=== PATIENT | female | born 1950 | race Caucasian/White ===

== ENCOUNTER 2018-06-10 09:38 | Inpatient (IN) ==
--- NOTE | 2018-06-10 09:48 | History & Physical Report ---
Date of Encounter: 06/10/18 Time of Encounter: 09:47 24 Hour HP Update - Instructions Instructions: If the History and Physical is less than 30 days old and was completed prior to A.M. admission and or procedure and has NOT been updated on calendar day of procedure please complete this update prior to performing procedure. - Update Patient reports changes in Medical Condition: No Changes in examination, assessment, or condition: No Preop tests/diagnostics Reviewed: Yes Pre-Op MRSA Screen: Negative Surgery Remains Indicated: Yes Consent for Planned Operative Procedure(s) Verified: Yes - Pre-Operative Checklist Preoperative Checklist Indicated: No Prophylactic Antibiotic Ordered: Yes Home Medications Include Beta Naina: No Beta Naina Taken Today (Day of Surgery): No Beta Naina Taken Yesterday (Day Prior to Surgery): No Is VTE Prophylaxis Indicated?: Yes
[2018-06-10] MEDS ORDERED: Acetaminophen IV 1,000 MG/100 ML INFUS..BTL IVPB ONE (10:01)
[2018-06-10] MEDS ORDERED: Pregabalin 75 MG CAPSULE PO ONE (10:01)
[2018-06-10] MEDS ORDERED: Famotidine 20 MG/2 ML VIAL IVP ONE (10:01)
[2018-06-10] MEDS ORDERED: *HR* Methadone 10 MG TABLET PO ONE (10:02)
[2018-06-10] MEDS ORDERED: CeFAZolin Syr 2,000MG/20 ML 2,000 MG/20 ML SYRINGE IVPB ONE (10:10)
[2018-06-10] MEDS ORDERED: Ringers Solution, Lactated 1,000 ML IVC SCH ×2 (10:15→12:45)
--- NOTE | 2018-06-10 10:17 | Anesthesia Evaluation PreOp ---
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 History: TIA Other Medical History: Diabetes Type II, Other ([place]) Anesthesia History: No Prior Anesthetic Complications, Past Anesthesia (Gastric Bypass) : No Alcohol Use: none Drug use: none Medications and Allergies Aspirin Enteric Coated [Aspirin EC] 325 mg PO DAILY #42 tablet.dr 05/06/16 [Rx] OxyCODONE Immed Rel [Roxicodone 5 MG] 5 - 10 mg PO Q6HR PRN #40 tablet 05/06/16 [Rx] Acetaminophen w/Cod 300-30 mg [Tylenol w/Codeine #3] 1 each PO Q6HR 05/07/16 [ History] Alendronate Sodium [Fosamax] 70 mg PO QWEEK 05/07/16 [History] Aspirin [Lo-Dose Aspirin EC] 81 mg PO 05/07/16 [History] Calcium Carbonate [Calcium] 500 mg PO 05/07/16 [History] Gabapentin [Neurontin] 400 mg PO TID 05/07/16 [History] Lisinopril/Hydrochlorothiazide [Zestoretic 10-12.5 mg Tablet] 1 each PO DAILY [History] Metformin HCl [Metformin HCl ER] 1,500 mg PO DAILY 05/07/16 [History] Verapamil HCl [Verapamil ER] 240 mg PO DAILY 05/07/16 [History] 3 Allergy/AdvReac Type Severity Reaction Status Date / Time nifedipine [From Procardia] Allergy Intermediate Anxiety Verified 05/12/18 11:58 - Meds/Allergy Pre-op Review Medications Reviewed: Yes Allergies Reviewed: Yes Beta Blockers on Current Med List: No Anesthesia Results - Labs Laboratory Tests 05/12/18 05/12/18 05/12/18 12:13 12:13 12:13 Hgb 14.8 Hct 43.8 Plt Count 216 PT 10.4 INR 0.9 APTT 31.0 Sodium 135 L Potassium 3.8 BUN 21 Creatinine 0.93 - Imaging EKG: report reviewed (SR) Additional studies: ECHO 2016 EF 60%, no pulm htn Anesthesia Exam O2 Sat Height 1.52 m Weight 102.965 kg Height: 5'0 Weight: 227 lbs NPO (# of Hours): MN Pain Scale: 0 - HEENT Pupil (Motor): Pupils equal, EOMI Mallampati: III Teeth: Normal Oral Opening: Less than or equal to 3 - BUFF WHEEL FABRICATOR LOC: Oriented BUFF WHEEL FABRICATOR Motor: Normal RUE, Normal LUE, Normal RLE, Normal LLE, Normal Face BUFF WHEEL FABRICATOR Sensory: Normal: RUE, LUE, LLE, Face, Deficit: RLE (Sciatica) - Cardiac Rhythm: Regular Murmur: None JVD: No Carotid Bruit: No - Pulmonary Breath Sounds: bilateral Clear Respiratory Effort: Symmetrical Anesthesia Assess/Plan ASA Score: 3 (HTN MANDY MO DM) Modified Yareli Scale for Level of Consciousness: Cooperative, oriented, and tranquil Anesthetic Plan: General Monitoring Plan: Standard Monitors Recovery Plan: PACU (Discussed GA, agrees to proceed)
[2018-06-10] MEDS ORDERED: Bacitracin 50,000 UNIT, Polymyxin B Sulfate 500,000 UNIT, Sodium Chloride IRRigation 1,... IR ONE (11:25)
[2018-06-10] MEDS ORDERED: *HR* Promethazine 25 MG/ML VIAL IVP PRN (12:45)
[2018-06-10] MEDS ORDERED: *HR* OxyCODONE Immed Rel 5 MG TABLET PO PRN (12:45)
[2018-06-10] MEDS ORDERED: Ondansetron 4 MG/2 ML VIAL IVP ONE (12:45)
[2018-06-10] MEDS ORDERED: *HR* Labetalol 20 MG/4 ML SYRINGE IVP PRN (12:45)
--- NOTE | 2018-06-10 14:27 | Orthopedic Operative Note ---
Date of procedure: 06/10/18 Pre-op diagnosis: Spondylolisthesis, lumbar stenosis Post-op diagnosis: same Operation/Findings: Posterior lumbar interbody fusion L3-4: The patient successfully underwent general endotracheal anesthesia. The patient was given antibiotics prior to the start of the procedure. Compression boots and stockings were used for deep vein thrombosis prophylaxis. A Heath catheter was placed. Leads for neuro monitoring were placed on the upper and lower extremities. This included the cranium. The neuro monitoring personnel confirmed there were satisfactory readings prior to the start of the procedure. The patient was turned prone on the Julio César table. The back was prepped and draped in the usual sterile fashion. An incision was was marked and centered over the involved L3-L4 levels in the mid line. The incision was deepened through the lumbar fascia. Bovie cautery and Garcia elevators were used to reflect the paraspinal musculature at the lateral extent of the transverse processes of the involved L3 and L4 levels. Diana clamps were placed over the L3 and L4 spinous processes. An intraoperative lateral fluorograph was obtained. A conversation was held between the surgeon and radiologist and both confirmed we had the correct operative levels. We then placed pedicle screws in standard fashion with the aid of fluoroscopy and anatomic landmarks. Briefly a starter awl was used. A gearshift was subsequently used to enter the photogrammetry airplane pilot hole via a transpedicular route into the vertebral body. The photogrammetry airplane pilot hole was tapped with an undersized instrument, and subsequently four 6.5 x 40 mm pedicle screws were placed bilaterally at the indicated L3 and L4 levels. The screws were tested with the aid of the neurologic monitoring staff via pedicle screw stimulation. All reading suggested there was no significant cortical wall breech. The screws were also evaluated fluoro- graphically and appeared to be in satisfactory position. We then turned our attention to the decompression portion of the procedure. We removed the supraspinous and interspinous ligaments and subsequently the insertion of the ligamentum flavum on the undersurface of the proximal L3 lamina was dislodged with a curette. We then removed the ligamentum flavum as well as undercut the L3-L4 facets at this level to decompress the lateral recesses. We also performed a L3 laminectomy. After the decompression, which was over and above that which was required to place the interbody graft, the foramen and traversing roots at this L3-L4 level were found to be free and patent. We also took part of the medial facets at L3- 4 in order to aid in the decompression. We then protected the neural elements including the thecal sac and traversing nerve root on the right with a dural retractor. We made an annulotomy into the L3-L4 disc space and then removed entire disc material using Pituitary instruments. We trialed various size grafts after the endplates were prepared for graft insertion. A 10 x 26 enter body graft fit well within the disc space. We obtained some bone from the right posterior superior iliac spine through us a separate incision and combined with this with the bone which we had saved from the laminectomy portion of the procedure. This autograft bone was first placed in the anterior portion of the L3-L4 disc space and additional bone was placed within the interbody graft spacer. We then placed the interbody graft spacer obliquely across the disc space towards the midline while protecting the neural elements with a root retractor. When the graft was found to be in satisfactory position the ceramic research engineer was removed. We then copiously irrigated the wound. We then decorticated the L3 and L4 transverse processes as well as L3-4 the facet joints of the involved L3 and L4 levels to aid in the posterolateral fusion. We placed autograft bone in the lateral gutters over these regions. We then placed rods within the screw heads of the involved L3 and L4 levels and first locked the distal screws and then subsequently locked the proximal screws so as to improve and reduce the spondylolisthesis previously seen. We then closed the wound in layers with 1 Vicryl for the fascia, 2-0 Vicryl. Subcutaneous tissue, and Dermabond was used for skin closure. Sterile dressings were placed over the wound. The patient was turned supine on a hospital bed and extubated. All sponge instruments and needle counts were correct at the end of the procedure. The patient tolerated the procedure well without complications. Anesthesia: GETA Surgeon: Nitin Buenrostro Jr Was there an esol teacher assistant present: No Estimated blood loss (cc): 100 Specimen: None Condition: stable Disposition: PACU
[2018-06-10] MEDS ORDERED: *HR* Remifentanil 1 MG VIAL IVP ONE (14:32)
[2018-06-10] MEDS ORDERED: *HR* Midazolam HCl 2 MG/2 ML VIAL ONE (14:32)
[2018-06-10] MEDS ORDERED: Dexamethasone 4 MG/ML VIAL ONE ×2 (14:32)
[2018-06-10] MEDS ORDERED: Lidocaine -MPF 2% 2 ML VIAL ONE (14:32)
[2018-06-10] MEDS ORDERED: Ondansetron 4 MG/2 ML VIAL ONE (14:32)
[2018-06-10] MEDS ORDERED: *HR* FentaNYL (PF) 100 MCG/2 ML VIAL ONE (14:32)
[2018-06-10] MEDS ORDERED: *HR* Succinylcholine 200 MG/10 ML VIAL IVP ONE (14:32)
[2018-06-10] MEDS ORDERED: *HR* Propofol 200 MG/20 ML VIAL IVP ONE (14:32)
[2018-06-10] MEDS: *HR* HYDROmorphone (PF) 1 MG/ML SYRINGE IVP PRN ×4 (14:34→14:46)
--- NOTE | 2018-06-10 15:13 | Anesthesia Evaluation Post Op ---
Date of Encounter: 06/10/18 Time of Encounter: 15:00 - Vital Signs Vital Signs: Vital Signs/O2 Sat/Glucose, Most Current Temp Pulse Resp BP Pulse Ox 06/10/18 15:04 98.6 F 98 16 134/71 97 06/10/18 14:54 98.6 F 87 16 138/72 97 06/10/18 14:44 97.5 F L 101 16 152/86 97 06/10/18 14:34 97.5 F L 113 16 158/106 97 - Lungs Lungs: Clear Ascult./Percussion - Airway Airway: Non-obstructed - Cardiovascular Regular Rate - Mental Status Mental Status: Alert & Oriented, Answers Appropriately - Pain Pain Scale: 1 - Nausea Vomiting Nausea Vomiting: Not Present - Hydration Hydration: Ice chips, Heath catheter - Discharge PostOp Status: Transfer Patient to floor
[2018-06-10] MEDS ORDERED: Acetaminophen 325 MG TABLET PO PRN (15:14)
[2018-06-10] MEDS ORDERED: Naloxone 0.4 MG/ML INJ IVP PRN (15:14)
[2018-06-10] MEDS ORDERED: Ondansetron 4 MG/2 ML VIAL IVP PRN (15:14)
[2018-06-10] MEDS: *HR* OxyCODONE Immed Rel 5 MG TABLET PO PRN ×2 (15:43→19:58)
[2018-06-10] MEDS: *HR* Metformin 500 MG TABLET PO SCH (16:21)
[2018-06-10] MEDS: Ringers Solution, Lactated 1,000 ML IVC SCH (16:22)
[2018-06-10] MEDS: *HR* HYDROcodone/Acet 5/325 mg TABLET PO PRN (18:09)
[2018-06-11] MEDS: *HR* OxyCODONE Immed Rel 5 MG TABLET PO PRN ×5 (01:13→20:22)
[2018-06-11] MEDS: Ringers Solution, Lactated 1,000 ML IVC SCH (01:16)
[2018-06-11 02:20] LABS: Basophils % 0.2 %; Eosinophils % 0.1 %; Hematocrit 31.9 % (35.3-44.9); Hemoglobin 10.7 g/dL (11.5-15.4); Immature Granulocytes % 0.7 % (0-4); Lymphocytes # 1.2 K/mcL (0.6-4.6); Lymphocytes % 11.3 %; Mean Corpuscular HGB Conc 33.5 g/dL (31.6-35.5); Mean Corpuscular Volume 92.5 fL (83.0-100.0); Mean Platelet Volume 11.3 fL (9.4-12.4); Monocytes # 0.5 K/mcL (0.0-1.3); Monocytes % 5.2 %; Neutrophils # 8.6 K/mcL (1.6-8.9); Platelet Count 151 K/mcL (140-400); Red Blood Count 3.45 M/mcL (3.82-4.97); Red Cell Distribution Width 12.4 % (11.5-14.5); Segmented Neutrophils % 82.5 %
[2018-06-11 02:40] LABS: BUN/Creatinine Ratio 19 (6-26); Blood Urea Nitrogen 17 mg/dL (8-23); Calcium 8.3 mg/dL (8.6-10.3); Carbon Dioxide 23 mEq/L (23-29); Chloride 103 mEq/L (98-107); Glucose 149 mg/dL (70-105); Osmolality,Calculated 290 (280-300); Potassium 4.6 mEq/L (3.5-5.1); Sodium 138 mEq/L (136-145); eGFR For Non-African Americans > 60 (> 60)
[2018-06-11] MEDS: Verapamil ER (24 HR) 240 MG TABLET.ER PO SCH (07:28)
[2018-06-11] MEDS: *HR* Metformin 500 MG TABLET PO SCH ×2 (07:28→17:27)
[2018-06-11] MEDS: Multivit/Ca/Min/Fe/FA 1 TAB TABLET PO SCH (07:28)
[2018-06-11] MEDS: hydroCHLOROthiazide 25 MG TABLET PO SCH (07:28)
--- NOTE | 2018-06-11 07:30 | Spine Progress Note ---
Date of Encounter: 06/11/18 Time of Encounter: 07:15 - Assessment and Plan (1) Status post lumbar spinal fusion Current Visit: Yes Status: Acute POD#1: Patient has been afebrile overnight. Blood pressure is normotensive. Good O2 saturation. Pain is well-controlled. Neurologic examination was grossly normal. - Continue pain control. - Continue Colace. - Continue Zofran as needed. - Continue neuro checks. (2) Anemia Current Visit: Yes Status: Acute Minimal blood loss from surgery. Hemoglobin level at 10.7. Baseline from 13-14. Blood pressure is stable. - Continue to monitor. Qualifiers: Anemia type: unspecified type Qualified Code(s): D64.9 - Anemia, unspecified (3) DMII (diabetes mellitus, type 2) Current Visit: No Status: Chronic Glucose level at 149. 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 - Continue hydrochlorothiazide. - Continue verapamil. Qualifiers: Hypertension type: essential hypertension Qualified Code(s): I10 - Essential (primary) hypertension (5) DVT prophylaxis Current Visit: Yes Status: Acute Continue EPCDs. Subjective Principal diagnosis: Spondylesthesis, lumbar stenosis Interval history: Patient says that she is doing well. Denies any fever or chills. Denies any chest pain or shortness of breath. Missed to some numbness and tingling in her right foot however she states that this is her baseline and has had it for many years. Denies any bowel movement or flatness as of yet. Denies any abdominal pain. Denies any nausea or vomiting. She says her pain is a 5-6 out of 10 when she does not move and an 8 out of 10 when she does move. Objective Vital signs: Vital Signs Temp Pulse Resp BP Pulse Ox 06/11/18 07:03 98.0 F 75 16 117/63 96 06/11/18 04:08 98.1 F 68 16 125/77 95 06/10/18 23:04 98.0 F 85 16 128/74 94 06/10/18 18:37 97.8 F 83 16 133/82 96 06/10/18 18:07 97.6 F 90 16 113/63 95 06/10/18 17:15 97.8 F 92 15 146/86 93 06/10/18 16:15 97.6 F 75 16 124/79 92 06/10/18 15:50 97.6 F 76 16 165/98 94 06/10/18 15:16 97.6 F 87 12 152/84 94 06/10/18 15:04 98.6 F 98 16 134/71 97 06/10/18 14:54 98.6 F 87 16 138/72 97 06/10/18 14:44 97.5 F L 101 16 152/86 97 06/10/18 14:34 97.5 F L 113 16 158/106 97 06/10/18 10:29 97.8 F 68 18 175/77 96 Intake and Output 06/10/18 06/10/18 06/11/18 15:59 23:59 07:59 Intake Total 220 / 220 1350 / 1350 Output Total 100 / 100 1150 / 1150 Balance -100 / -100 220 / 220 200 / 200 Intake: IV Fluids 100 / 100 1100 / 1100 Lactated Ringers 1,000 ML @ 100 1000 / 1000 mls/hr IVC .Q10H JOHN Rx#: [id number] Ancef 2,000 MG In 0.9 % Sodium 100 / 100 100 / 100 Chloride 100 ML @ 200 mls/hr IVPB Q8H JOHN Rx#:[id number] Oral 120 / 120 250 / 250 Output: Estimated Blood Loss 100 / 100 Catheter 1150 / 1150 Other: Weight 102.965 kg 102.9 kg Blood Glucose* 128 218 Patient Weight 06/11/18 23:59 Weight 102.9 kg VITAL SIGNS: Reviewed. See [facility] GENERAL: In no acute distress. Able to follow commands. HEENT: [Normocephalic, PER, EOMi, oropharynx pink/moist, no JVD noted.] CV: b/l rad pulses 2+, RRR, no murmurs or gallops, no JVD RESPIRATORY: CTAB without wheezes, rales, or rhonchi ABD: soft, non-tender, no rebound/guarding/rigidity, no peritoneal signs INCISION: Wound bandage with minor dried blood. Incision itself clean, dry, intact without purulence/bleeding/edema/rubor/calor. EXTREMITY: grossly normal motor function, no pedal edema, peripheral pulses 2+ b /l MSK: 5 out of 5 strength in upper and lower extremities. NEUROLOGIC EXAM: AOx3, obeys commands, no speech deficits. Cranial nerves II through XII intact. Minor diminished sensation in right foot. Patient able to move all toes in both feet. PSYCHIATRIC: normal mood and affect SKIN: no gross lesions, rashes, or skin changes - Labs CBC & BMP: 06/11/18 01:55 06/11/18 01:55 Labs: Abnormal lab results RBC 3.45 M/mcL (3.82-4.97) L 06/11/18 01:55 Hgb 10.7 g/dL (11.5-15.4) L 06/11/18 01:55 Hct 31.9 % (35.3-44.9) L 06/11/18 01:55 Glucose 149 mg/dL (70-105) H 06/11/18 01:55 POC Glucose 218 mg/dL (70-99) H 06/10/18 16:21 Calcium 8.3 mg/dL (8.6-10.3) L 06/11/18 01:55 Consult Discharge Plan - Plan Referrals: Nitin Buenrostro Jr, MD [Primary Care Provider] -
[2018-06-11] MEDS: Aspirin Enteric Coated 81 MG Tablet PO SCH (07:31)
[2018-06-11] MEDS: *HR* HYDROcodone/Acet 5/325 mg TABLET PO PRN (09:41)
[2018-06-11] MEDS ORDERED: (Alendronate Sodium [Fosamax] 70 MG) PO SCH (14:30)
[2018-06-11] MEDS: Nystatin POWDER 30 GM BOTTLE TP SCH (22:47)
[2018-06-12] MEDS: *HR* OxyCODONE Immed Rel 5 MG TABLET PO PRN ×5 (02:11→22:17)
[2018-06-12] MEDS: *HR* Metformin 500 MG TABLET PO SCH ×2 (08:45→17:10)
[2018-06-12] MEDS: Verapamil ER (24 HR) 240 MG TABLET.ER PO SCH (08:45)
[2018-06-12] MEDS: hydroCHLOROthiazide 25 MG TABLET PO SCH (08:46)
[2018-06-12] MEDS: Aspirin Enteric Coated 81 MG Tablet PO SCH (08:46)
[2018-06-12] MEDS: Multivit/Ca/Min/Fe/FA 1 TAB TABLET PO SCH (08:46)
[2018-06-12] MEDS: Nystatin POWDER 30 GM BOTTLE TP SCH ×2 (08:47→19:42)
[2018-06-12] MEDS: *HR* HYDROcodone/Acet 5/325 mg TABLET PO PRN (23:22)
[2018-06-13] MEDS: *HR* OxyCODONE Immed Rel 5 MG TABLET PO PRN ×3 (04:58→14:08)
[2018-06-13] MEDS: Aspirin Enteric Coated 81 MG Tablet PO SCH (09:39)
[2018-06-13] MEDS: Multivit/Ca/Min/Fe/FA 1 TAB TABLET PO SCH (09:39)
[2018-06-13] MEDS: Verapamil ER (24 HR) 240 MG TABLET.ER PO SCH (09:39)
[2018-06-13] MEDS: *HR* Metformin 500 MG TABLET PO SCH (09:40)
[2018-06-13] MEDS: hydroCHLOROthiazide 25 MG TABLET PO SCH (09:40)
[2018-06-13] MEDS: Nystatin POWDER 30 GM BOTTLE TP SCH (12:42)
[2018-06-13] MEDS: *HR* HYDROcodone/Acet 5/325 mg TABLET PO PRN (12:42)
--- NOTE | 2018-06-13 13:35 | Spine Progress Note ---
Date of Encounter: 06/12/18 Time of Encounter: 14:05 Subjective Principal diagnosis: Spondylesthesis, lumbar stenosis Interval history: The patient is without complaints except for some leg pain aggravated from therapy. Afebrile vital signs are stable. Incision is clean dry and intact. Neurovascularly intact with regard to bilateral lower extremities. Fires all upper and lower extremity motor groups. . Assessment :stable. Plan mobilize , continue analgesics, discharge planning. Objective Vital signs: Vital Signs Temp Pulse Resp BP Pulse Ox 06/13/18 09:51 98.5 F 76 16 146/74 95 06/13/18 09:36 82 139/62 06/13/18 06:35 98.8 F 68 15 123/67 95 06/13/18 03:45 98.5 F 71 17 119/69 93 06/12/18 23:55 98.5 F 86 17 135/61 96 06/12/18 20:25 98.7 F 84 17 142/74 97 Intake and Output 06/12/18 06/13/18 06/13/18 23:59 07:59 15:59 Other: # Voids 1 Weight 103.4 kg Blood Glucose* 190 Patient Weight 06/13/18 23:59 Weight 103.4 kg - Labs CBC & BMP: 06/11/18 01:55 06/11/18 01:55 Labs: Abnormal lab results RBC 3.45 M/mcL (3.82-4.97) L 06/11/18 01:55 Hgb 10.7 g/dL (11.5-15.4) L 06/11/18 01:55 Hct 31.9 % (35.3-44.9) L 06/11/18 01:55 Glucose 149 mg/dL (70-105) H 06/11/18 01:55 POC Glucose 218 mg/dL (70-99) H 06/10/18 16:21 Calcium 8.3 mg/dL (8.6-10.3) L 06/11/18 01:55 Consult Discharge Plan - Plan Additional Instructions: Discharge Instructions: Lumbar Please call [facility] ([phone]), your Primary Care Physician, or report to the ER if you have any of the following symptoms: Fever greater that 101.5, increased pain/redness/drainage/odor for your incision site or any other concerning symptoms. ACTIVITY * May Shower * No Tub Baths * No lifting greater than 10 pounds * No Smoking * No Swimming * No off Ground Activities (Running, Climbing, Ladders, Horseback Riding) * No Driving * Wear Back Brace when up walking if lumbar fusion done * Incentive Spirometer 10 times an hour MEDICATIONS: Upon discharge resume your home medications. Take all the medications as prescribed. Take a stool softener if taking narcotic pain medications. Stool softeners are only effective if you drink enough fluids. Drink 6-8 glass of water or fluids a day, unless this is not allowed for another health problem. Despite using stool softeners, if you haven't had a bowel movement in 3 days, please switch to a gentle laxative. Gentle laxatives are sold over the counter. You should have a bowel movement within 24 hours, if not call the office. You will be discharged from the hospital with a prescription for pain medication. You are encouraged to decrease the use of narcotic pain medication as tolerated. Should you require a refill, please call the office. It is best to call 48-72 hours in advance of needing a prescription refill so you don't run out of medication. WOUND CARE: Remove Dressing Tomorrow. Leave incision open to air. Pat dry when you get out of the shower. FOLLOW-UP: Please follow up with your surgeon in the orthopedic clinic in 2 weeks from the day of surgery. References: [employer] ([email or web address]) Referrals: Misty Neff, MARIA EUGENIA [Physician Hand Funnel Coater] - 06/24/18 11:00 am
--- NOTE | 2018-06-13 13:39 | Discharge Summary ---
- NOTES TO OUTPATIENT PROVIDER Notes to Outpatient Provider: Follow-up in spine Center in 2 weeks Orders not resulted at time of discharge: Pending orders 06/10/18 11:45 XR fluoroscopy <1 hr [XR] Routine Date of Encounter: 06/13/18 Time of Encounter: 13:36 - Discharge Diagnosis (1) Spondylolisthesis Priority: Primary Status: Chronic Qualifiers: Spinal region: lumbar Qualified Code(s): M43.16 - Spondylolisthesis, lumbar region (2) Lumbar stenosis Priority: Secondary Status: Chronic Qualifiers: Neurogenic claudication status: without neurogenic claudication Qualified Code(s): M48.061 - Spinal stenosis, lumbar region without neurogenic claudication - Hospital Course Hospital course: Ms. Duncan is a 68 year old female The patient had an uneventful postoperative course. Progressed from intravenous analgesic needs to oral analgesic needs only. Remained neurovascularly intact and mobilized satisfactorily. All intraoperative and/or postoperative radiographic studies were satisfactory. Patient is discharged with plan for rehabilitation and follow-up in 2 weeks post discharge on analgesic medication and patient's home medications. - Time Spent with Patient Total time spent providing and/or coordinating discharge services: - Discharge Medications Prescriptions: OxyCODONE Immed Rel [Roxicodone 5 MG] 5 mg PO Q4HR PRN 7 Days #30 tablet PRN Reason: Severe Pain Home Medications: Alendronate Sodium [Fosamax] 70 mg PO WE 05/07/16 [History] Gabapentin [Neurontin] 800 mg PO BID 05/07/16 [History] Verapamil HCl [Verapamil ER] 240 mg PO DAILY 05/07/16 [History] Aspirin [[place] Aspirin EC] 81 mg PO DAILY 06/10/18 [History] Metformin HCl [Fortamet] 1,000 mg PO BID 06/10/18 [History] Multivitamin [Multivitamins] 1 each PO DAILY 06/10/18 [History] hydroCHLOROthiazide [Hydrochlorothiazide] 25 mg PO DAILY 06/10/18 [History] OxyCODONE Immed Rel [Roxicodone 5 MG] 5 mg PO Q4HR PRN 7 Days #30 tablet [Rx] Allergies/Adverse Reactions: 3 Allergy/AdvReac Type Severity Reaction Status Date / Time nifedipine [From Procardia] Allergy Intermediate Anxiety Verified 06/10/18 10:45 ibuprofen AdvReac see comment Verified 06/10/18 10:45 Date of admission: 06/10/18 15:10 Primary care physician: Nitin Buenrostro Jr MD Consults: 06/10/18 15:14 Consult to Occupational Therapy [CONS] Routine Comment: Evaluate, develop and implement POC Reason for Consult: Postoperative rehabilitation Does patient have active BEDREST order?: No Is patient medically & hemodynamically stable?: Yes Patient assessed for mobility or mobilized this visit?: No Consult to Physical Therapy [CONS] Routine Comment: Evaluate, develop and implement POC Reason for Consult: Postoperative rehabilitation Does patient have active BEDREST order?: No Is patient medically & hemodynamically stable?: Yes Patient assessed for mobility or mobilized this visit?: No Consult to Spine Navigator [CONS] [CONS] Routine - Impressions ITS Impressions Lumbar Spine X-Ray 06/10/18 11:45 IMPRESSION: 1. Intraoperative lateral radiograph demonstrating an anterior and posterior L3-L4 fusion without complication. D/ / 06/10/2018 14:43:42 [facility] Interpreting Provider: Yovanny Hernandez MD Lumbar Spine X-Ray 06/13/18 08:28 IMPRESSION: Unchanged spinal fusion hardware without evidence of complication. D/ / Janes Yadav MD / Janes Yadav MD Interpreting Provider: Janes Yadav MD - Patient Status Disposition: Transfer SNF Condition: Good Functional capacity at discharge: uses cane/walker Overall status at discharge: patient is progressing back to baseline - Discharge Instructions Follow Up With: Misty Neff, PAC [Physician Gum Rolling Machine Operator] - 06/24/18 11:00 am Additional Instructions: Discharge Instructions: Lumbar Please call [facility] ([phone]), your Primary Care Physician, or report to the ER if you have any of the following symptoms: Fever greater that 101.5, increased pain/redness/drainage/odor for your incision site or any other concerning symptoms. ACTIVITY * May Shower * No Tub Baths * No lifting greater than 10 pounds * No Smoking * No Swimming * No off Ground Activities (Running, Climbing, Ladders, Horseback Riding) * No Driving * Wear Back Brace when up walking if lumbar fusion done * Incentive Spirometer 10 times an hour MEDICATIONS: Upon discharge resume your home medications. Take all the medications as prescribed. Take a stool softener if taking narcotic pain medications. Stool softeners are only effective if you drink enough fluids. Drink 6-8 glass of water or fluids a day, unless this is not allowed for another health problem. Despite using stool softeners, if you haven't had a bowel movement in 3 days, please switch to a gentle laxative. Gentle laxatives are sold over the counter. You should have a bowel movement within 24 hours, if not call the office. You will be discharged from the hospital with a prescription for pain medication. You are encouraged to decrease the use of narcotic pain medication as tolerated. Should you require a refill, please call the office. It is best to call 48-72 hours in advance of needing a prescription refill so you don't run out of medication. WOUND CARE: Remove Dressing Tomorrow. Leave incision open to air. Pat dry when you get out of the shower. FOLLOW-UP: Please follow up with your surgeon in the orthopedic clinic in 2 weeks from the day of surgery. References: [employer] ([email or web address]) - Diet and Activity Activity: as per physical therapy Diet: advance to your usual diet
[2018-06-13 14:07] VITALS: BP 122/62
== END 2018-06-13 15:17 | DRG 454 ==
LOC: SAMDAY 09:38 → 3NENU 15:10
PROVIDERS: ADMIT Orthopaedic Surgery Orthopaedic Surgery of the Spine; ATTEND Orthopaedic Surgery Orthopaedic Surgery of the Spine